=== PATIENT | male | born 1960 | race Caucasian/White ===

== ENCOUNTER 2025-07-02 15:20 | Emergency (ER) | payer MEDICARE ==
[~2025-07-02] VITALS: Ht 182.9 cm; Wt 97.0 kg
[~2025-07-02 15:20] MED LIST: CAHNTIXC PO; CHAN0.5P PO; CYMBALTA60 PO; FLEXERIL; FLEXERIL5 PO; LIDODERM TOPICAL; VICO5TAB; VICOTAB PO
[2025-07-02 15:24] VITALS: TEMP 98.4
[2025-07-02 16:29] LABS: BASO # 0.1 10^3/uL (0.0-0.2); BASO % 0.3 % (0.0-1.0); EOS # 0.0 10^3/uL (0.0-0.5); EOS % 0.3 % (0.0-3.0); LYMPH # 1.4 10^3/uL (1.5-5.0); LYMPH % 9.5 % (24.0-44.0); MONO # 1.2 10^3/uL (0.0-0.8); MONO % 7.8 % (2.0-8.0); NEUTROPHILS # 12.0 10^3/uL (1.5-8.5); NEUTROPHILS % 81.4 % (36.0-66.0); PLATELET COUNT, AUTOMATED 196 10^3/uL (150-450)
[2025-07-02 17:03] LABS: CALCIUM LEVEL 8.8 MG/DL (8.3-10.6); CARBON DIOXIDE LEVEL 23.0 MMOL/L (20-31); CHLORIDE LEVEL 103.0 MMOL/L (98-107); CREATININE FOR GFR 1.04 MG/DL (0.70-1.30); GLOMERULAR FILTRATION RATE 78.7 (>49); POTASSIUM SERUM 4.6 MMOL/L (3.5-5.1); SODIUM LEVEL 137.0 MMOL/L (136-145)
[2025-07-02 17:07] LABS: C REACTIVE PROTEIN QUANTITATIV 12.74 MG/DL (<1.0)
[2025-07-02 17:12] LABS: ERYTHROCYTE SEDIMENTATION RATE 55 mm/hr (0-20)
[2025-07-02] MEDS: LIDOCAINE W/EPINEPHrine 1% 20 ML VIAL SC ONE (17:55)
[2025-07-02 18:31] VITALS: BP 164/81; O2SAT 97
[2025-07-02 19:44] LABS: CRYSTALS, BODY FLUID CA PYROPHOSPHATE (NONE SEEN); SOURCE, BODY FLUID CRYSTALS RT KNEE
[2025-07-02 19:58] LABS: SOURCE, BODY FLUID RT KNEE
[2025-07-03] MEDS ORDERED: INDO50CA91 PO (17:02)
== END 2025-07-02 19:12 | disposition left against medical advice (07) ==
LOC: M ED 15:20
DX: M25.461 Effusion, right knee (principal); F17.210 Nicotine dependence, cigarettes, uncomplicated; Z88.0 Allergy status to penicillin; Z91.030 Bee allergy status; Z79.2 Long term (current) use of antibiotics; Z53.9 Procedure and treatment not carried out, unspecified reason